=== PATIENT | female | born 1995 | race African-American/Black ===

== ENCOUNTER 2017-06-27 12:12 | Emergency (ER) | payer SELFPAY ==
[~2017-06-27] VITALS: Ht 167.6 cm; Wt 70.0 kg
[2017-06-27 12:15] VITALS: BP 126/78
[2017-06-27] MEDS ORDERED: DIPHENHYDRAMINE 25MG CAPSULE PO ONE (14:00)
[2017-06-27] MEDS ORDERED: DEXAMETHASONE 10 MG/ML VIAL IM ONE (14:30)
== END 2017-06-27 14:57 | disposition home or self-care (01) ==
LOC: ER 12:12
DX: R21 Rash and other nonspecific skin eruption (principal); M79.89 Other specified soft tissue disorders
CPT/HCPCS: 96372; 99283; J1100; Q0163